=== PATIENT | female | born 1980 | race Caucasian/White ===

== ENCOUNTER 2017-06-07 15:27 | Emergency (ER) | payer BC ==
[~2017-06-07] VITALS: Ht 162.6 cm; Wt 59.1 kg
[2017-06-07 15:35] VITALS: TEMP 98.4
[2017-06-07 16:15] LABS: BASO % 0.2 % (0.0-2.0); EOS % 0.4 % (0-4.0); GRAN # 7.3 (1.4-6.5); GRAN % 79.3 % (42.2-75.2); HEMATOCRIT 40.2 % (37.0-47.0); HEMOGLOBIN 14.1 g/dl (12.5-16.0); LYMPH # 1.2 (1.2-3.4); LYMPH % 12.5 % (20.0-51.0); MEAN CELL VOLUME 87 fl (80.0-100.0); MEAN CORPUSCULAR HEMOGLOBIN 30 pg (27.0-31.0); MEAN CORPUSCULAR HGB CONC 35 g/dl (33.0-37.0); MEAN PLATELET VOLUME 9.9 fl (7.4-10.4); MONO # 0.7 (0.1-0.6); MONO % 7.3 % (1.7-9.3); PLATELET COUNT 214 K/mm3 (130-400); RED BLOOD COUNT 4.64 M/mm3 (4.10-5.30); WHITE BLOOD COUNT 9.2 K/mm3 (4.8-10.8)
[2017-06-07 16:31] LABS: ADJUSTED CALCIUM 9.1 mg/dL (8.4-10.2); ALBUMIN 4.5 gm/dL (3.5-5.0); BILIRUBIN,TOTAL 0.4 mg/dL (0.0-1.0); CALCIUM 9.5 mg/dL (8.4-10.2); CREATININE, serum 0.68 mg/dL (0.52-1.25); POTASSIUM 3.7 mmol/L (3.4-5.0); TOTAL PROTEIN 7.6 gm/dL (6.4-8.2)
[2017-06-07] MEDS ORDERED: NORCO 325 MG-51 TAB PO (17:35)
[2017-06-07 18:53] VITALS: BP 128/72; PULSE 71
== END 2017-06-07 18:53 | disposition home or self-care (01) ==
LOC: COL.ER 15:27
PROVIDERS: Family Medicine
DX: S06.0X1A Concussion with loss of consciousness of 30 minutes or less, initial encounter (principal); S40.011A Contusion of right shoulder, initial encounter; S70.01XA Contusion of right hip, initial encounter; V80.010A Animal-rider injured by fall from or being thrown from horse in noncollision accident, initial encounter; Y99.0 Civilian activity done for income or pay
CPT/HCPCS: J2270; J2550

== ENCOUNTER → 2018-02-24 | Outpatient (CLI) | payer BC ==
[~2018-02-24] MED LIST: NORCO 325 MG-51 TAB PO
== END ==
LOC: COL.LAB 08:24
DX: T84.59XA Infection and inflammatory reaction due to other internal joint prosthesis, initial encounter (principal)

== ENCOUNTER 2021-02-21 21:49 | Emergency (ER) | payer BC ==
[2021-02-21 22:49] VITALS: TEMP 98.3
[2021-02-22 00:52] VITALS: BP 134/99; PULSE 81
[2021-02-23] MEDS ORDERED: NORCO 325 MG-51 TAB PO (13:31)
[2021-02-23] MEDS ORDERED: FLEXERIL 1010 MG/TAB PO (13:31)
== END 2021-02-22 00:56 | disposition home or self-care (01) ==
LOC: COL.ER 21:49
DX: S70.02XA Contusion of left hip, initial encounter (principal); V80.010A Animal-rider injured by fall from or being thrown from horse in noncollision accident, initial encounter

== ENCOUNTER 2021-02-23 12:19 | Emergency (ER) | payer BC ==
[~2021-02-23] VITALS: Ht 162.6 cm; Wt 52.3 kg
[2021-02-23 12:54] VITALS: TEMP 98.6
[2021-02-23] MEDS ORDERED: FLEXERIL 1010 MG/TAB PO (13:31)
[2021-02-23] MEDS ORDERED: NORCO 325 MG-51 TAB PO (13:31)
[2021-02-23 13:40] VITALS: BP 128/67; PULSE 72
== END 2021-02-23 13:40 | disposition home or self-care (01) ==
LOC: COL.ER 12:19
DX: S39.012A Strain of muscle, fascia and tendon of lower back, initial encounter (principal); S70.02XA Contusion of left hip, initial encounter; V80.010A Animal-rider injured by fall from or being thrown from horse in noncollision accident, initial encounter